=== PATIENT | male | born 1975 | race Caucasian/White ===

== ENCOUNTER → 2021-03-20 | Day surgery (SDC) | payer OTHER ==
[~2021-03-20] MED LIST: BACL10TA PO; BUPIVACAINE-EPI 0.25%-1:200000 MPF 30 ML VIAL. IJ ONE; BUPIVACAINE-EPI 0.25%-1:200000 MPF 30 ML VIAL. ONE; CETI10CA PO; NAPR-514 PO; PANT40TA6 PO; glucosamine PO; multivitamin PO
--- NOTE | 2021-03-20 09:56 | PDOC4 ---
Operative Report DATE March 202020 at 9:54 AM Preop Diagnosis Lipomatous masses right abdomen mid abdomen and right upper arm Post-op Diagnosis Same Operation Performed Excision of lipomatous masses Patient is 45-year-old male with complaints of subcutaneous masses on his abdomen and right upper arm. Procedure of excision was explained to the patient detail was benefits were also discussed including bleeding infection alternatives this procedure also discussed with the patient who seemed to understand and gave a verbal written consent had procedure performed. Patient was taken to the minor's room placed in supine position the area on his abdomen was prepped and draped usual sterile fashion using ChloraPrep. The right abdominal mass was injected with quarter percent Marcaine with epinephrine once this anesthetized 15 blade scalpel is used to make incision over the mass mass was sharply excised with Metzenbaum scissors the mass size was 2 cm with no margin wound was closed in a single layer 4-0 subcuticular Monocryl. Mid abdominal mass was excised in a similar fashion the mass was 1 cm and the wound was closed in a single layer 4 subcuticular Monocryl. Tensions were then turned to the right upper arm which was prepped with ChloraPrep and injected quarter percent Marcaine with epinephrine incised with a 15 blade scalpel is carried down through subcutaneous tissues excising the mass with Metzenbaum scissors the mass size was 1 cm with no margins. The wound again was closed with 4 subcuticular Monocryl Mastisol Steri-Strips and island dressings were applied. Patient tolerated procedure well was discharged home in stable condition all sponge instrument needle counts listed as correct estimated blood loss 10 mL Surgeon Alexander ANESTHESIA PROPOSED: LOCAL Blood Loss 10 mL Specimen 1. Right abdominal mass 2 cm 2. Mid abdominal mass 1 cm 3. Right upper arm mass 1 cm Complications None JATIN RODNEY MD Mar 20, 2021 09:56
--- NOTE | 2021-03-20 09:58 | DISCH ---
DISCHARGE INSTRUCTIONS-DC Condition on Discharge Condition on Discharge: Stable Activity after Discharge Activity Instructions for Disc: No restrictions Diet after Discharge Diet after Discharge: Regular Wound/Incision Care Other wound/incision instructi: May shower in 24 hours Contacting the [facility] after DC Call your doctor for: If your condition worsens JATIN RODNEY MD Mar 20, 2021 09:58
[2021-03-20 10:02] VITALS: BP 118/62
== END | disposition home or self-care (01) ==
LOC: SURG 07:43 → EDUNIT# 08:30
PROVIDERS: ATTEND Surgery
DX: R19.00 Intra-abdominal and pelvic swelling, mass and lump, unspecified site (principal); D17.1 Benign lipomatous neoplasm of skin and subcutaneous tissue of trunk; D17.21 Benign lipomatous neoplasm of skin and subcutaneous tissue of right arm; K21.9 Gastro-esophageal reflux disease without esophagitis; F17.210 Nicotine dependence, cigarettes, uncomplicated; Z72.89 Other problems related to lifestyle; Z98.890 Other specified postprocedural states
CPT/HCPCS: 22902; 24075; J3490; 88304

== ENCOUNTER 2021-03-24 11:24 | Emergency (ER) | payer OTHER ==
[~2021-03-24] VITALS: Ht 188 cm; Wt 137.8 kg
[~2021-03-24 11:24] MED LIST changes: -BUPIVACAINE-EPI 0.25%-1:200000 MPF 30 ML VIAL. IJ ONE; -BUPIVACAINE-EPI 0.25%-1:200000 MPF 30 ML VIAL. ONE
[2021-03-24 11:44] VITALS: BP 140/95
--- NOTE | 2021-03-24 12:04 | PHYS DOC ---
Past History Past Surgical History: Other Additional Past Surgical Histo: lypoma removal,vasectomy, right knee repair (TARA ZACARIAS PATIENT LIAISON) Adult General Chief Complaint Chief Complaint: WOUND RECHECK/SUTURE REMOVAL HPI HPI Patient is a 45-year-old male patient presenting to the ED today for wound check for an incision on the left lower abdomen that has dehisced. Patient states he had a lipoma removed from the left lower abdomen 5 days ago and woke up this morning with a dehisced incision. Denies any drainage from the area. Denies any redness or warmth. (TARA ZACARIAS PATIENT LIAISON) Review of Systems Review of Systems Constitutional: Denies fever or chills [] Musculoskeletal: Denies back pain or joint pain [] Integument: Reports dehisced incision left lower abdomen Neurologic: Denies headache, focal weakness or sensory changes [] All other systems were reviewed and found to be within normal limits, except as documented in this note. (TARA ZACARIAS APRN) Allergies Allergies Allergies Coded Allergies Type Severity Reaction Last Updated Verified No Known Drug Allergies 03/24/21 No (TARA ZACARIAS APRN) Physical Exam Physical Exam Constitutional: Well developed, well nourished, no acute distress, non-toxic appearance. [] Skin: Rounded abdomen, left lower abdomen with approximately 6 cm dehisced surgical incision. No drainage from the area, no signs of infection. No redness, no warmth. Back: No tenderness, no CVA tenderness. [] Extremities: No tenderness, no cyanosis, no clubbing, ROM intact, no edema. [] Neurologic: Alert and oriented X 3, normal motor function, normal sensory function, no focal deficits noted. [] Psychologic: Affect normal, judgement normal, mood normal. [] (TARA ZACARIAS PATIENT LIAISON) Current Patient Data Vital Signs Vital Signs Date Time Temp Pulse Resp B/P (MAP) Pulse Ox O2 Delivery O2 Flow Rate FiO2 03/24/21 11:44 98.1 78 18 140/95 (110) 98 Room Air (TARA ZACARIAS PATIENT LIAISON) EKG EKG [] (TARA ZACARIAS PATIENT LIAISON) Radiology/Procedures Radiology/Procedures Laceration/Wound Repair Wound Location: Left lower Wound's Depth, Shape: Horizontal Wound Length (cm): approx. 6 cm Wound Explored: clean Irrigated w/ Saline (ccs): 30 Betadine Prep?: Yes Anesthesia: 1% of lidocaine with epinephrine Volume Anesthetic (ccs): Approximately 6 cc Wound Repaired With: Ethilon Suture Size/Type: 4.0/interrupted Number of Sutures: 7 Progress wound was covered with Steri-Strips (TARA ZACARIAS APRN) Heart Score C/O Chest Pain: N/A Risk Factors: Risk Factors: DM, Current or recent (<one month) smoker, HTN, HLP, family history of CAD, obesity. Risk Scores: Risk Factors: DM, Current or recent (<one month) smoker, HTN, HLP, family history of CAD, obesity. (TARA ZACARIAS APRN) Course & Med Decision Making Course & Med Decision Making Pertinent Labs and Imaging studies reviewed. (See chart for details) This is a 45-year-old male patient presenting to the ED today with a dehisced left lower abdomen incision from lipoma removal 4 days ago, the area has no signs of infection, incision opened up overnight Spoke with Dr. Lozada, he requested we close the wound with stitches or nedra if applicable. Wound was closed with sutures as noted in procedures. Patient was given wound care instructions and return precautions. He has an appointment with Dr. Munoz on April 02, 2021 (TARA ZACARIAS APRN) Dragon Disclaimer Dragon Disclaimer This electronic medical record was generated, in whole or in part, using a voice recognition dictation system. (TARA ZACARIAS APRN) Attending Co-Sign The patient was seen and interviewed as well as examined at the bedside. The chart was reviewed. The case was discussed. Agree with the plan of care. (JEANNETTE NGO DO) Departure Departure: Impression: Primary Impression: Dehiscence of incision Disposition: 01 HOME / SELF CARE / HOMELESS Condition: STABLE Referrals: JATIN MUNOZ MD (PCP) Follow-up 04/02/2021 as scheduled Patient Instructions: Wound Dehiscence Additional Instructions: Your incision site was closed with stitches. Please keep the area clean and dry. You can shower tomorrow. You can wash the area once a day, do not soak the area. Monitor the area for any signs of infection including but not limited to increased redness, warmth, yellow drainage from the area or any other concerning symptoms or return to the ED. Follow-up with Dr. Munoz on April 02, 2021 as scheduled Problem Qualifiers Primary Impression: Dehiscence of incision Encounter type: initial encounter Qualified Codes: T81.31XA - Disruption of external operation (surgical) wound, not elsewhere classified, initial encounter TARA ZACARIAS APRN Mar 24, 2021 12:04 JEANNETTE NGO DO Mar 25, 2021 08:38
[2021-03-24] MEDS ORDERED: LIDOCAINE 1%/EPI 1:100,000 20 ML VIAL. IJ ONE (12:45)
== END 2021-03-24 14:03 | disposition home or self-care (01) ==
LOC: ER 11:24
DX: T81.31XA Disruption of external operation (surgical) wound, not elsewhere classified, initial encounter (principal)
CPT/HCPCS: 99282